=== PATIENT | female | born 1945 | race Caucasian/White ===

== ENCOUNTER 2017-06-07 16:55 | Emergency (ER) | payer OTHER ==
[~2017-06-07] VITALS: Ht 162.6 cm; Wt 68.6 kg
[2017-06-07] MEDS ORDERED: TRIA50CA4 PO (17:15)
[2017-06-07] MEDS ORDERED: SIMV20TA2 PO (17:15)
[2017-06-07] MEDS ORDERED: PANT20TA PO (17:15)
[2017-06-07] MEDS ORDERED: PANT40TA2 PO (17:15)
[2017-06-07] MEDS ORDERED: FELO10TA PO (17:15)
[2017-06-07] MEDS ORDERED: MORPHINE 2 MG/ML 1ML SYRINGE IV PRN (18:15)
[2017-06-07] MEDS ORDERED: ONDANSETRON 4MG/2ML VIAL (J2405) IV ONE (18:15)
[2017-06-07 18:29] LABS: BASO % 0.3 % (0.0-1.0); EOS # 0.1 K/mm3 (0.0-0.50); EOS % 1.1 % (0.0-3.0); LARGE UNSTAINED CELL # 0.2 K/mm3 (0.0-0.4); LARGE UNSTAINED CELL % 1.7 % (0.0-4.0); LYMPH # 0.9 K/mm3 (1.5-4.5); LYMPH % 10.2 % (24.0-44.0); MEAN CORPUSCULAR HEMOGLOBIN 30.9 pg (27.0-33.0); MEAN CORPUSCULAR HGB CONC 34.8 g/dl (32.0-36.5); MEAN CORPUSCULAR VOLUME 88.8 fl (80.0-96.0); MONO # 0.6 K/mm3 (0.0-0.8); MONO % 6.8 % (0.0-5.0); NEUTROPHILS # 6.8 K/mm3 (1.8-7.7); PLATELET COUNT, AUTOMATED 217 k/mm3 (150-450); RED CELL DISTRIBUTION WIDTH 12.2 % (11.5-14.5); WHITE BLOOD COUNT 8.4 K/mm3 (4.0-10.0)
[2017-06-07 18:41] LABS: INR 0.94
[2017-06-07 18:54] LABS: ALBUMIN 3.9 GM/DL (3.2-5.2); ALBUMIN/GLOBULIN RATIO 1.39 (1.00-1.93); ALKALINE PHOSPHATASE 86 U/L (45-117); ALT/SGPT 27 U/L (12-78); ANION GAP 10 MEQ/L (8-16); AST/SGOT 25 U/L (15-37); BILIRUBIN,DIRECT 0.2 MG/DL (0.0-0.2); BILIRUBIN,TOTAL 0.9 MG/DL (0.2-1.0); BLOOD UREA NITROGEN 13 MG/DL (7-18); CALCIUM LEVEL 8.9 MG/DL (8.8-10.2); CARBON DIOXIDE LEVEL 28 MEQ/L (21-32); CHLORIDE LEVEL 107 MEQ/L (98-107); CREATININE FOR GFR 0.96 MG/DL (0.55-1.02); GLOMERULAR FILTRATION RATE > 60.0 (>39); GLUCOSE, FASTING 107 MG/DL (83-110); POTASSIUM SERUM 3.4 MEQ/L (3.5-5.1); SODIUM LEVEL 145 MEQ/L (136-145); TOTAL PROTEIN 6.7 GM/DL (6.4-8.2)
[2017-06-07] MEDS ORDERED: ISOVUE-370 76% 100ML VIAL (Q9967) As Ordered ONE (18:56)
--- NOTE | 2017-06-07 19:40 | REP ---
Clinical: Trauma. Technique: Axial noncontrast images from the skull base to the thoracic inlet with coronal and sagittal re-formations. Findings: Advanced multilevel degenerative changes are noted from the atlantoaxial level through C7-T1. Findings include reversal of lordosis at the C2-3 level, diffuse osteophytosis, endplate sclerosis/heterogeneity and disc space narrowing as well as facet arthropathy. No obvious acute fracture / compression injury or subluxation is appreciated. The spinal canal appears patent. The spinous processes are intact. The paravertebral soft tissues appear normal. Visualized lung apices appear clear. Impression: Advanced multilevel degenerative disc osteophyte complexes. No evidence for acute fracture / compression injury or subluxation. Signed by Gómez Miles MD 06/07/2017 07:32 P
--- NOTE | 2017-06-07 19:52 | REP ---
Clinical: Trauma. Technique: Axial contrast enhanced images from the thoracic inlet to the upper abdomen using 100 ml Isovue 370 intravenous contrast material with coronal and sagittal re-formations. Findings: The bilateral lung pineda are well-aerated and demonstrate mild chronic age-related interstitial changes with minimal left lower lobe scarring and bilateral posterior basilar dependent changes. Mild perihilar and lower lobe bronchiectasis is also appreciated and chronic. No consolidation/contusion, pleural effusion or pneumothorax. No obvious, significant nodule or mass lesion. Mediastinum demonstrates normal thoracic aorta, heart/pericardium and pulmonary vasculature. No mediastinal injury is appreciated. No adenopathy noted. Surrounding musculoskeletal structures demonstrate age-related degenerative changes without evidence for acute injury. Limited upper abdomen demonstrates normal bilateral adrenal glands and evidence for prior cholecystectomy. Small hiatal hernia at the gastroesophageal junction noted. Impression: 1. Chronic pleuroparenchymal changes as described above. 2. No evidence for acute mediastinal or pleuroparenchymal pathology or trauma/injury. 3. Small hiatal hernia. Signed by Gómez Miles MD 06/07/2017 07:44 P
--- NOTE | 2017-06-07 20:02 | REP ---
Clinical: Trauma. Technique: Axial contrast enhanced images from the lung bases to the pubic symphysis using 100 ml Isovue 370 intravenous contrast material with coronal and sagittal re-formations. Findings: Lung bases demonstrate chronic changes. Visualized portions of the heart and pericardium normal. Small hiatal hernia noted at the gastroesophageal junction. There is no evidence for solid organ injury. Fatty infiltration to the liver suggested without focal hepatic lesion. Spleen, pancreas, bilateral adrenal glands and kidneys are normal. The patient is status post cholecystectomy. The enteric system demonstrates diverticulosis without evidence for acute diverticulitis and no evidence for bowel obstruction or acute inflammatory process. Pelvis demonstrates normal bladder and evidence for prior hysterectomy. No ascites. No free air. No adenopathy. Atherosclerotic changes of the aorta and vasculature noted without aneurysm or obvious vascular injury. Musculoskeletal structures demonstrate age-related osteopenia and degenerative changes without evidence for acute trauma/injury. Impression: 1. No evidence for acute abdominopelvic pathology or trauma/injury. 2. Fatty infiltration to the liver without focal hepatic lesions identified. 3. Evidence of prior cholecystectomy and hysterectomy. 4. Diverticulosis without acute diverticulitis. 5. Small hiatal hernia. Signed by Gómez Miles MD 06/07/2017 07:53 P
--- NOTE | 2017-06-07 20:04 | REP ---
Clinical: Trauma. Technique: Axial noncontrast images from C5-L1 with coronal and sagittal re-formations. Findings: Thoracic vertebral bodies are intact and demonstrate mild age-related degenerative changes including marginal spurring and minimal disc space narrowing. Normal alignment and kyphosis noted. No acute fracture / compression injury or subluxation. Spinal canal is patent. Posterior elements and spinous processes are intact. Paravertebral soft tissues are normal. Impression: Mild to moderate multilevel degenerative age-related changes. Stable alignment and kyphosis. No evidence for acute trauma/injury. No acute fracture / compression injury or subluxation. Signed by Gómez Miles MD 06/07/2017 07:55 P
[2017-06-07 20:16] VITALS: BP 154/70
[2017-06-07] MEDS ORDERED: NORCO 5/325MG TABLET (BULK FOR ED) PO ONE (20:30)
--- NOTE | 2017-06-09 08:18 | ECGEPIP ---
Stationary ECG Study [facility] - ED Test Date: 2017-06-07 Pat Name: ALEKSANDAR CHANEL Department: Room: - Gender: F [employer]: rn : 1945 Requested By: Sree Ponce Order Number: [id number] Reading MD: Olivia Muir Measurements Intervals [place] Rate: 72 P: 49 HI: 133 QRS: -1 QRSD: 97 T: 117 QT: 388 QTc: 425 Interpretive Statements SINUS RHYTHM ST DEVIATION AND MODERATE T-WAVE ABNORMALITY, CONSIDER ANTEROLATERAL ISCHEMIA, CLINICAL CORRELATION NO PRIOR FOR COMPARISON Electronically Signed On 06-08-2017 7:35:27 EDT by Olivia Muir
== END 2017-06-07 20:28 | disposition home or self-care (01) ==
LOC: M ED 16:55 → EDSEX 16:55 → EDBD 16:55 → M ED 20:28
DX: Z04.1 Encounter for examination and observation following transport accident (principal); T14.90 Injury, unspecified; V47.6XXA Car passenger injured in collision with fixed or stationary object in traffic accident, initial encounter; Y92.410 Unspecified street and highway as the place of occurrence of the external cause; Y93.89 Activity, other specified; Y99.8 Other external cause status; I10 Essential (primary) hypertension; L23.1 Allergic contact dermatitis due to adhesives; Z79.899 Other long term (current) drug therapy
CPT/HCPCS: 71260; 72125; 72128; 74177; 80048; 80076; 83690; 85025; 85610; 85730; 93005; 93041; 94760; 96374; 96375; 99285; J2405; Q9967